=== PATIENT | female | born 1990 | race Caucasian/White ===

== ENCOUNTER 2023-10-10 14:34 | Emergency (ER) | payer MEDICAID, OTHER ==
[~2023-10-10] VITALS: Ht 154.9 cm; Wt 74.8 kg
[2023-10-10 14:44] VITALS: BP 121/74; PULSE 104; RESP 15; TEMP 98.3; O2SAT 96
[2023-10-10] MEDS ORDERED: FLUORESCEIN OPTH STRIP 1 MG OP ONE (15:55)
[2023-10-10] MEDS ORDERED: FLUORESCEIN OPTH STRIP 1 MG ONE (17:32)
[2023-10-10] MEDS ORDERED: TETRACAINE HCL/PF 0.5% OPTH 4 ML BTL OP ONE (18:25)
[2023-10-10 18:56] VITALS: BP 125/74; PULSE 89; RESP 15; TEMP 98.3; O2SAT 97
== END 2023-10-10 18:56 | disposition home or self-care (01) ==
LOC: MED 14:34
DX: S01.111A Laceration without foreign body of right eyelid and periocular area, initial encounter (principal); W20.8XXA Other cause of strike by thrown, projected or falling object, initial encounter; Y93.89 Activity, other specified; Y92.89 Other specified places as the place of occurrence of the external cause; Y99.8 Other external cause status
CPT/HCPCS: 99283